=== PATIENT | male | born 1970 | race African-American/Black ===

== ENCOUNTER 2019-03-20 03:30 | Emergency (ER) | payer SELFPAY ==
[~2019-03-20] VITALS: Ht 170.2 cm; Wt 131.5 kg
[2019-03-20] MEDS ORDERED: IBUPROFEN 600MG TABLET PO ONE (07:30)
[2019-03-20 07:49] VITALS: BP 160/82
== END 2019-03-20 07:50 | disposition home or self-care (01) ==
LOC: ER 03:30
DX: H60.92 Unspecified otitis externa, left ear (principal); H92.02 Otalgia, left ear; Z87.442 Personal history of urinary calculi
CPT/HCPCS: 99283